=== PATIENT | female | born 1970 | race Two or more races ===

== ENCOUNTER 2020-12-01 23:06 | Emergency (ER) | payer OTHER ==
[~2020-12-01] VITALS: Ht 162.6 cm; Wt 68.0 kg
[2020-12-01] MEDS ORDERED: FORTAMET500 MG (23:43)
[2020-12-01] MEDS ORDERED: CLONAZEPAM2 MG (23:44)
== END 2020-12-02 07:27 | disposition left against medical advice (07) ==
LOC: ER 23:06
DX: Z53.20 Procedure and treatment not carried out because of patient's decision for unspecified reasons (principal)